=== PATIENT | male | born 1955 | race Caucasian/White ===

== ENCOUNTER 2021-12-20 08:22 | Emergency (ER) | payer MEDICARE, MEDICAID, SELFPAY ==
[2021-12-20] VITALS (14 sets, daily range): BP systolic 106–129; BP diastolic 62–108; PULSE 88–107; RESP 14–20; TEMP 36.1–37; O2SAT 96–100
--- NOTE | ~2021-12-20 | US_ITS ---
EXAMINATION: US paracentesis abd w/image DATE: 12/20/2021 16:53 INDICATION: Ascites. TECHNIQUE: The procedure and its risks, benefits, and alternatives were discussed with the patient. P otential risks discussed included bleeding and infection. The skin was prepped and draped in sterile fashion. 1% lidocaine was used for local anesthesia. Under ultrasound guidance, a 5 Fr catheter with trochar was advanced into the ascites in the left lower quadrant. Fluid was aspirated. The catheter w as removed, and a dressing was applied. There were no immediate complications. FINDINGS: Ultrasound images demonstrate ascites and the catheter within the fluid. IMPRESSION: 1. Successful ultrasound-guided paracentesis yielding 2500 mL of clear, yellow fluid. Reviewed, dictated and finalized at location A.
--- NOTE | ~2021-12-20 | XR_ITS ---
EXAMINATION: XR chest 2V DATE: 12/20/2021 09:13 INDICATION: Shortness of breath TECHNIQUE: AP and lateral views of the chest are obtained. COMPARISON: None available FINDINGS: There are airspace opacities of the lung bases and left midlung zone. No pleural effusion o r pneumothorax. The cardiomediastinal silhouette is normal. There is moderate thoracic spondylosis. T here is an old healed fracture of the left clavicle. IMPRESSION: 1. Airspace opacities of the lung bases and left midlung zone, consistent with atelectasis versus pne umonia. Reviewed, dictated and finalized at location B. IMPRESSION: 1. Airspace opacities of the lung bases and left midlung zone, consistent with atelectasis versus pneumonia.
--- NOTE | ~2021-12-20 | CT_ITS ---
EXAMINATION: CT abdomen pelvis w con INDICATION: Abdominal pain and distention TECHNIQUE: Computed tomographic images of the abdomen and pelvis were obtained after the administrati on of 100 cc of Omnipaque 350 intravenous contrast. The dose-length product (DLP) was 1265.72 mGy-cm. Automated exposure control and iterative reconstruction technique were employed. COMPARISON: 05/06/2013 FINDINGS: There is severe emphysema of the visualized lung bases. The heart size is normal. There is moderate circumferential wall thickening of the distal esophagus. A small sliding hiatal hernia is pr esent. Punctate calcifications in the spleen likely represent healed granulomatous disease. Splenomeg nico is noted. There is nodularity of the liver surface. There is a large volume of abdominal and pelv ic ascites. The pancreas is unremarkable. There appears to be mild wall thickening of the gallbladder , likely related to chronic liver disease. The adrenal glands and right kidney are unremarkable. Ther e is a 2 mm nonobstructing stone of the left kidney lower pole. There is calcified atherosclerosis of the aorta and many of the other arteries. There is severe stenosis at the origin of the left common iliac artery and in the mid right common iliac artery. There is calcified atherosclerosis with severe stenosis and near complete occlusion of the infrarenal abdominal aorta. There is moderate wall thick ening of multiple loops of small bowel as well as the ascending and transverse colon. No free intrape ritoneal gas is identified. No pathologically enlarged abdominal or pelvic lymph nodes are identified . There is severe lumbar spondylosis. IMPRESSION: 1. Cirrhosis with portal hypertension and splenomegaly. 2. Large volume of abdominal and pelvic ascites. 3. Severe atherosclerotic disease with near complete occlusion of the infrarenal abdominal aorta and severe stenosis of the bilateral common iliac arteries. 4. Wall thickening involving multiple loops of small bowel as well as the ascending and transverse co derick which could relate to chronic liver disease, ascites, or possibly ischemia. 5. Wall thickening of the distal esophagus which could reflect esophagitis or be partially related to esophageal varices. Reviewed, dictated and finalized at location B. IMPRESSION: 1. Cirrhosis with portal hypertension and splenomegaly. 2. Large volume of abdominal and pelvic ascites. 3. Severe atherosclerotic disease with near complete occlusion of the infrarena l abdominal aorta and severe stenosis of the bilateral common iliac arteries. 4. Wall thickening involving multiple loops of small bowel as well as the ascen ding and transverse colon which could relate to chronic liver disease, ascites, or possibly ischemia. 5. Wall thickening of the distal esophagus which could reflect esophagitis or b e partially related to esophageal varices.
--- NOTE | 2021-12-20 08:30 | ECG_ITS ---
Measurements Intervals [place] Rate: 100 P: 76 TN: 144 QRS: 72 QRSD: 101 T: 76 QT: 343 QTc: 444 Interpretive Statements SINUS TACHYCARDIA LOW QRS VOLTAGE IN PRECORDIAL LEADS BASELINE WANDER- II, III, AVF, V3 BORDERLINE ECG NO PREVIOUS ECG AVAILABLE FOR COMPARISON Electronically Signed On 12-20-2021 8:40:19 CDT by Branden Keane D.O.
[2021-12-20 09:01] LABS: Basophils Percent Auto 0.1 % (0.2-1.2); Eosinophils Percent Auto 0.3 % (0-4.4); Immature Granulocyte Percent A 1.1 % (0-0.5); Immature Platelet Fraction Pct 6.6 % (0.9-11.2); Lymphocytes Absolute Auto 0.89 K/mm3 (0.9-3.2); Mean Corpuscular Hemoglobin 26.5 pg (26-34); Mean Corpuscular Volume 91.4 fl (80-100); Mean Platelet Volume 10.8 fl (7.4-10.4); Monocytes Absolute Auto 0.5 K/mm3 (0.1-0.6); Monocytes Percent Auto 5.8 % (2.6-8.5); Neutrophils Absolute Auto 7.4 K/mm3 (1.3-6.7); Neutrophils Percent Auto 82.7 % (45.5-73.1); Platelet Count Result 83 k/mm3 (150-375); Red Blood Count 1.85 M/mm3 (4.6-6.20); Red Cell Distribution Width 16.6 % (11.5-14.5); White Blood Count 8.9 K/mm3 (4.5-10.0)
[2021-12-20 09:11] LABS: Alanine Aminotransferase 45 U/L (6-50); Albumin Level 2.2 g/dL (3.5-5.1); Alkaline Phosphatase 96 U/L (38-126); Anion Gap 8 mmol/L (8-16); Aspartate Amino Transferase 66 U/L (17-59); Bilirubin,Total 1.5 mg/dL (0.2-1.3); Blood Urea Nitrogen 21 mg/dL (9-20); Calcium 7.7 mg/dL (8.4-10.2); Carbon Dioxide 21 mmol/L (22-30); Chloride 94 mmol/L (98-107); Estimated Glomerular Filt Rate > 60; Glucose 156 mg/dL (65-110); Potassium 4.2 mmol/L (3.4-5.0); Sodium 123 mmol/L (137-145)
[2021-12-20 09:13] LABS: INR 1.3; Prothrombin Time 15.9 Seconds (11.1-14.7)
[2021-12-20 09:14] LABS: Partial Thromboplastin Time 32.8 SECONDS (22.3-36.8)
[2021-12-20 09:15] LABS: Hematocrit 16.9 % (42.0-52.0); Hemoglobin 4.9 g/dL (14.0-18.0)
[2021-12-20 09:16] LABS: Anisocytosis 1+ (NORMAL); Hypochromasia 2+ (NORMAL); Microcytosis 1+ (NORMAL); Platelet Estimate Decreased (Adequate)
[2021-12-20 09:22] LABS: NT Pro B Type Natriuretic Pept 56 pg/mL (5-100); Troponin I < 0.012 ng/mL (0.000-0.034)
--- NOTE | 2021-12-20 09:42 | ED.GENADULT ---
HPI - General Adult General Chief complaint: Extremity Problem,Nontraumatic <Billy Mera APRN - Last Filed: 12/20/21 19:22> Stated complaint: swelling all over, boils to back <Billy Mera APRN - Last Filed: 12/20/21 19:22> Time Seen by Provider: 12/20/21 09:09 <Billy Mera APRN - Last Filed: 12/20/21 19:22> History of Present Illness HPI narrative: 66-year-old male no medical problems presents to the emergency room for multiple medical complaints. Patient states that he has been experiencing swelling to bilateral lower extremities for 6 weeks. Notes that the swelling began in his right leg and then moved to his left leg, has swelling has progressively moved up to his thighs. Patient also endorses blood in his stool for several weeks. Remarks that he is getting increasingly weaker and developing more shortness of breath since noticing the blood in his stool. Patient also states that he has boils on his back that are leaking clear fluid. <Billy Mera APRN - Last Filed: 12/20/21 19:22> Related Data Home medications: Home Medications Medication Instructions Recorded Confirmed No Home Medications 12/20/21 <Billy Mera APRN - Last Filed: 12/20/21 19:22> Allergies/adverse reactions: Allergies Allergy/AdvReac Type Severity Reaction Status Date / Time No Known Allergies Allergy Unverified 02/26/13 14:10 <Billy Mera APRN - Last Filed: 12/20/21 19:22> Review of Systems Review of Systems: CONSTITUTIONAL: Denies fever, chills, or sweats. EYES: Denies visual changes, redness, or discharge. ENT: Denies rhinorrhea, congestion, sore throat, or otalgia. CARDIOVASCULAR: Denies chest pain, palpitations, or edema. RESPIRATORY: Reports dyspnea. GASTROINTESTINAL: Reports abdominal pain, reports melena GENITOURINARY: Denies dysuria or hematuria. SKIN: Denies rash or itching. MUSCULOSKELETAL: Denies back pain, joint pain, or myalgia. NEUROLOGIC: Denies headache, numbness, dizziness, or weakness. PSYCHIATRIC: Denies anxiety or depression. <Billy Mera APRN - Last Filed: 12/20/21 19:22> ON LICENSE OF [facility] Social History Social History: Social History Alcohol intake: never <Billy Mera APRN - Last Filed: 12/20/21 19:22> Exam Narrative: GENERAL: Ill-appearing HEAD: Normocephalic, atraumatic. EYES: Conjunctivae pale, PERRLA and EOMI. NECK: Supple. CHEST: Clear to auscultation. No respiratory distress. No wheezes rales or rhonchi. HEART: Regular rate and rhythm. No murmur heard. ABDOMEN: Rigid, diffusely tender, distended BACK: No CVA tenderness; No cervical/thoracic/lumbar tenderness, step-offs, bony abnormality; FROM EXTREMITIES: +3/+4 pitting edema bilateral lower extremities extending up to the thigh SKIN: Multiple superficial ulcerations to the back draining serosanguineous fluid NEURO: No focal deficits. Alert and oriented x3. MAEW. CN's II-XI intact bilaterally PSYCH: Cooperative. Normal mood and affect. <Billy Mera APRN - Last Filed: 12/20/21 19:22> Course Course Emergency Course: 1100: Patient has been accepted at [facility]. MD Phillips is the accepting MD. Patient will go to the MICU. <Billy Mera APRN - Last Filed: 12/20/21 19:22> 1100: Patient has been accepted at [facility]. MD Phillips is the accepting MD. Patient will go to the MICU. Patient is remained stable throughout my shift I will be signing out to the day provider as of 0700 <Iftikhar Norman MD - Last Filed: 12/21/21 07:13> Vital Signs Vital signs: Vital Signs Temperature 37.0 C 12/20/21 08:28 Pulse Rate 107 H 12/20/21 08:28 Respiratory Rate 18 12/20/21 08:28 Blood Pressure 120/108 H 12/20/21 08:28 Pulse Oximetry 100 12/20/21 08:28 Oxygen Delivery Room Air 12/20/21 08:28 Temperature 36.1 C L 12/21/21 00:13 Pulse Rate 98 12/21/21 06:43 Respiratory Rate 15
[2021-12-20 10:10] LABS: Lactic Acid Reflex 3.6 mmol/L (0.7-2.0)
[2021-12-20] MEDS: SODIUM CHLORIDE 0.9% IV 1,000 ML 150 ML IV CONT (10:23)
[2021-12-20] MEDS: PANTOPRAZOLE SODIUM IV 40 MG VIAL IV PUSH (11:17)
[2021-12-20 11:27] LABS: Acetaminophen < 10 ug/mL (10-30); Ammonia < 9 umol/L (9-30); Ethanol < 10 mg/dL (<10)
[2021-12-20] MEDS: SODIUM CHLORIDE 0.9% IV 250 ML 30 ML IV CONT ×2 (11:48→20:56)
[2021-12-20 11:52] LABS: Albumin Level 2.1 g/dL (3.5-5.1)
[2021-12-20 12:29] LABS: Hepatitis B Surface Antigen Negative (Negative)
[2021-12-20 12:34] LABS: HAV RESULT Negative (Negative); Hepatitis B Core IgM Result Negative (Negative)
[2021-12-20 12:54] LABS: Reflex Lactic Acid Yes or No Add Lactic
[2021-12-20 13:02] LABS: Hepatitis C Virus Antibody Reactive (Negative)
[2021-12-20 13:27] LABS: Lactic Acid 1.8 mmol/L (0.7-2.0)
--- NOTE | 2021-12-20 14:24 | PC.NURSE ---
First bag of RBCs infused at 1421. Vitals signs WNL.
--- NOTE | 2021-12-20 15:11 | PC.NURSE ---
Report given to JULIA Stark
[2021-12-20] MEDS: HYDROmorphone HCL INJ (*CRX) 1 MG/ML SYR 0.5 MG IV PUSH (16:11)
[2021-12-20 17:56] LABS: Eosinophils Percent Auto 0.6 % (0-4.4); Hematocrit 21.2 % (42.0-52.0); Immature Granulocyte Percent A 1.6 % (0-0.5); Immature Platelet Fraction Pct 5.1 % (0.9-11.2); Lymphocytes Absolute Auto 0.99 K/mm3 (0.9-3.2); Lymphocytes Percent Auto 15.9 % (18.3-44.2); Mean Corpuscular HGB Conc 31.1 g/dl (32-36); Mean Corpuscular Hemoglobin 27.6 pg (26-34); Mean Corpuscular Volume 88.7 fl (80-100); Mean Platelet Volume 10.6 fl (7.4-10.4); Monocytes Absolute Auto 0.4 K/mm3 (0.1-0.6); Monocytes Percent Auto 6.4 % (2.6-8.5); Neutrophils Absolute Auto 4.7 K/mm3 (1.3-6.7); Neutrophils Percent Auto 75.5 % (45.5-73.1); Nucleated Red Blood Cells Perc 0.3 % (0.0-0.2); Platelet Count Result 69 k/mm3 (150-375); Red Blood Count 2.39 M/mm3 (4.6-6.20); Red Cell Distribution Width 15.7 % (11.5-14.5); White Blood Count 6.2 K/mm3 (4.5-10.0)
[2021-12-20] MEDS: ALBUMIN HUMAN 25% 25 GM/100 ML 100 ML IVPB (17:59)
[2021-12-20 18:15] LABS: Hemoglobin 6.6 g/dL (14.0-18.0)
[2021-12-20 18:17] LABS: Anisocytosis 2+ (NORMAL); Hypochromasia 1+ (NORMAL); Platelet Estimate Decreased (Adequate)
--- NOTE | 2021-12-20 18:50 | PC.NURSE ---
[facility] called to confirm that pt is still in need of bed. [facility] transfer centered stated they are still at capacity and will return call again on nightshift for update.
[2021-12-20 19:14] LABS: Appearance Peritoneal Fluid Clear (Clear); Color Peritoneal Fluid Yellow (Colorless); Lymphocytes Peritoneal Fluid 44 %; Monocytes Peritoneal Fluid 56 %; Neutrophils Peritoneal Fluid 0 % (0-25); Nucleated Cells Peritoneal Flu 225 /uL (0-500); RBC Peritoneal Fluid 300 /uL (0-100000); Source Peritoneal Fluid Peritoneal Fluid
[2021-12-20] MEDS: TUBING, BLOOD PLUM PUMP TUBING 1 EACH XX (20:56)
[2021-12-20] MEDS: TUBING, BLOOD SET 1 EACH XX (20:56)
[2021-12-20] MEDS: ONDANSETRON INJ 4 MG/2 ML VIAL IV PUSH (20:56)
[2021-12-21] VITALS (46 sets, daily range): BP systolic 94–123; BP diastolic 58–79; PULSE 78–98; RESP 10–20; TEMP 36.1; O2SAT 93–100
--- NOTE | 2021-12-21 02:31 | PC.NURSE ---
[facility] called and they do not have available beds.
--- NOTE | 2021-12-21 03:05 | PC.NURSE ---
Report given to Sheela
--- NOTE | 2021-12-21 07:09 | PC.NURSE ---
Report given to Sherrie DUMONT
--- NOTE | 2021-12-21 12:30 | PC.NURSE ---
asked for the pt to be admitted to our facility to wait on transfer, no new orders.
--- NOTE | 2021-12-21 15:00 | PC.NURSE ---
informed provider octreotide is complete, no new orders
[2021-12-21 16:54] LABS: Eosinophils Absolute Auto 0.1 K/mm3 (0-0.3); Eosinophils Percent Auto 1.5 % (0-4.4); Hematocrit 24.3 % (42.0-52.0); Hemoglobin 7.5 g/dL (14.0-18.0); Immature Granulocyte Absolute 0.07 K/mm3 (0.00-0.031); Immature Granulocyte Percent A 1.3 % (0-0.5); Immature Platelet Fraction Pct 6.3 % (0.9-11.2); Lymphocytes Absolute Auto 0.72 K/mm3 (0.9-3.2); Lymphocytes Percent Auto 13.5 % (18.3-44.2); Mean Corpuscular HGB Conc 30.9 g/dl (32-36); Mean Corpuscular Hemoglobin 27.3 pg (26-34); Mean Corpuscular Volume 88.4 fl (80-100); Mean Platelet Volume 9.8 fl (7.4-10.4); Monocytes Absolute Auto 0.3 K/mm3 (0.1-0.6); Monocytes Percent Auto 4.7 % (2.6-8.5); Neutrophils Absolute Auto 4.2 K/mm3 (1.3-6.7); Platelet Count Result 61 k/mm3 (150-375); Red Blood Count 2.75 M/mm3 (4.6-6.20); Red Cell Distribution Width 16.7 % (11.5-14.5); White Blood Count 5.3 K/mm3 (4.5-10.0)
[2021-12-21 17:06] LABS: Ovalocytes 1+ (NORMAL); Platelet Estimate Decreased (Adequate)
[2021-12-22 00:03] VITALS: PULSE 89; RESP 13; O2SAT 96
--- NOTE | 2021-12-22 04:08 | PC.NURSE ---
0100 [facility] called with bed assignment room [id number]. [facility] called for transport and they arrived at 0145. [place]
[2021-12-24 07:27] LABS: Hepatitis C RNA, Quant PCR 529000 IU/mL
[2021-12-24 13:08] LABS: Glucose Peritoneal Fluid 136 mg/dL; LDH Peritoneal Fluid 22 U/L (<63); Total Protein Peritoneal Fluid <3.0 g/dL
[2021-12-25 11:34] LABS: Albumin Peritoneal Fluid 0.3 g/dL
== END 2021-12-22 02:09 | disposition short-term general hospital (02) ==
PROVIDERS: Emergency Medicine; Nurse Practitioner Family; Emergency Provider Emergency Medicine
DX: K92.2 Gastrointestinal hemorrhage, unspecified (principal); D64.9 Anemia, unspecified; K76.6 Portal hypertension; I25.10 Atherosclerotic heart disease of native coronary artery without angina pectoris; K74.60 Unspecified cirrhosis of liver; R16.1 Splenomegaly, not elsewhere classified; R18.8 Other ascites; R93.3 Abnormal findings on diagnostic imaging of other parts of digestive tract; R53.1 Weakness; R06.02 Shortness of breath
CPT/HCPCS: 36415; 36430; 49083; 71046; 74177; 80053; 80074; 80307; 82040; 82042; 82140; 82945; 83605; 83615; 83880; 84157; 84484; 85025; 85055; 85610; 85730; 86850; 86900; 86901; 86920; 87070; 87075; 87205; 87522; 88108; 88305; 89051; 93005; 96365; 96366; 96367; 96368; 96375; 99285; C9113; J0696; J1170; J2354; J2405; J7030; J7050; J7060; P9016; P9047; Q9967